=== PATIENT | female | born 1960 | race Caucasian/White ===

== ENCOUNTER → 2024-01-08 12:58 | Outpatient (REF) | payer OTHER, SELFPAY | LOC: HWRAD 12:58 | PROVIDERS: ATTENDING PHYSICIAN Family Medicine | DX: R22.41 Localized swelling, mass and lump, right lower limb (principal) | CPT/HCPCS: 76882 ==

== ENCOUNTER → 2024-08-12 15:05 | Outpatient (REF) | payer OTHER, SELFPAY | LOC: HWWDC 15:05 | PROVIDERS: ATTENDING PHYSICIAN Obstetrics & Gynecology; FAMILY PHYSICIAN Family Medicine | DX: Z12.31 Encounter for screening mammogram for malignant neoplasm of breast (principal) | CPT/HCPCS: 77063; 77067 ==

== ENCOUNTER → 2025-08-24 13:54 | Outpatient (REF) | payer OTHER, SELFPAY | LOC: HWWDC 13:54 | PROVIDERS: ATTENDING PHYSICIAN Obstetrics & Gynecology; FAMILY PHYSICIAN Family Medicine | DX: Z12.31 Encounter for screening mammogram for malignant neoplasm of breast (principal) | CPT/HCPCS: 77063; 77067 ==